=== PATIENT | male | born 1990 | race Caucasian/White ===

== ENCOUNTER 2018-04-14 09:24 | Outpatient (CLI) | payer MEDICAID ==
[2018-04-14 09:19] VITALS: BP 138/87
== END 2018-04-14 10:17 | disposition home or self-care (01) ==
LOC: ORTHO 09:24
PROVIDERS: ATTEND Nurse Practitioner Family
DX: S83.512A Sprain of anterior cruciate ligament of left knee, initial encounter (principal); S83.8X2A Sprain of other specified parts of left knee, initial encounter; W17.89XA Other fall from one level to another, initial encounter; Y93.89 Activity, other specified; Y92.89 Other specified places as the place of occurrence of the external cause; Y99.8 Other external cause status
CPT/HCPCS: 99213